=== PATIENT | female | born 2000 | race Caucasian/White ===

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

== ENCOUNTER 2019-01-17 22:00 | Outpatient (CLI) | payer OTHER ==
[2019-01-17 23:35] LABS: ADD MAN DIFF? NO
[2019-01-17 23:37] LABS: WHITE BLOOD COUNT 7.7 10^3/ul (4.8-10.8)
[2019-01-17 23:37] LABS: BASOPHILS % 0.4 % (0.0-2.0); EOSINOPHILS # 0.1 10^3/ul (0.0-0.5); HEMATOCRIT 28.3 % (37.0-47.0); HEMOGLOBIN 9.2 g/dl (12.0-16.0); LYMPHOCYTES # 1.6 10^3/ul (0.8-2.9); LYMPHOCYTES % 21.4 % (18.0-55.0); MEAN CORPUSCULAR HEMOGLOBIN 27.8 pg (29.0-33.0); MEAN CORPUSCULAR HGB CONC 32.5 g/dl (32.0-37.0); MEAN CORPUSCULAR VOLUME 85.5 fl (72.0-104.0); MEAN PLATELET VOLUME 9.5 fl (7.4-10.4); MONOCYTE # 0.6 10^3/ul (0.3-0.9); NEUTROPHIL # 5.3 10^3/ul (1.6-7.5); NEUTROPHILS % 68.8 % (30.0-74.0); PLATELET COUNT 204 10^3/UL (140-415); RED BLOOD COUNT 3.31 10^6/ul (4.20-5.40); RED CELL DISTRIBUTION WIDTH 13.8 % (11.5-14.5)
[2019-01-17 23:42] LABS: ADD UMIC YES; UR ASCORBIC ACID NEGATIVE (NEGATIVE); UR BILIRUBIN (Dip) NEGATIVE (NEGATIVE); UR BLOOD (Dip) 2+ mg/dL (NEGATIVE); UR CLARITY SLIGHTLY CLOUDY (CLEAR); UR COLOR YELLOW (YELLOW); UR GLUCOSE (Dip) NEGATIVE (NEGATIVE); UR KETONES (Dip) NEGATIVE (NEGATIVE); UR LEUKOCYTE ESTERASE (Dip) 1+ Leu/ul (NEGATIVE); UR NITRITE (Dip) NEGATIVE (NEGATIVE); UR RBC 0 /HPF (0-5); UR SPECIFIC GRAVITY (Dip) 1.013 (1.003-1.030); UR SQUAMOUS EPITHELIAL CELL FEW /HPF (FEW); UR TOTAL PROTEIN (Dip) NEGATIVE (NEGATIVE); UR UROBILINOGEN (Dip) NEGATIVE (NEGATIVE); UR WBC 6 /HPF (0-5)
[2019-01-17 23:56] LABS: AMPHETAMINE/METHAMPHETAMINE Negative (NEGATIVE); BARBITURATES Negative (NEGATIVE); BENZODIAZEPINES Negative (NEGATIVE); CANNABINOIDS Negative (NEGATIVE); COCAINE Negative (NEGATIVE); OPIATES Negative (NEGATIVE)
== END 2019-01-18 01:56 | disposition home or self-care (01) ==
LOC: OBT 22:00 → L-D 22:02
DX: O46.8X3 Other antepartum hemorrhage, third trimester (principal); Z3A.35 35 weeks gestation of pregnancy
CPT/HCPCS: 76815; 80307; 81001; 85025; 86850; 86900; 86901

== ENCOUNTER 2019-02-17 03:20 | Inpatient (IN) | payer OTHER ==
[2019-02-17] MEDS ORDERED: FENTAnyl 50 MCG/ML VIAL IV (04:00)
[2019-02-17] MEDS ORDERED: OXYTOCIN 30 UNITS/LR 500 ML IV ×2 (04:00→08:30)
[2019-02-17] MEDS ORDERED: CARBOPROST 250 MCG INJ IM ×2 (04:00→08:30)
[2019-02-17] MEDS ORDERED: OXYCODONE/ASPIRIN (4.88/325) TAB PO ×3 (04:00→08:30)
[2019-02-17] MEDS ORDERED: IBUPROFEN 600 MG TAB PO (04:00)
[2019-02-17] MEDS ORDERED: MISOPROSTOL 200 MCG TAB PR ×2 (04:00→08:30)
[2019-02-17] MEDS ORDERED: LIDOCAINE 1% (MPF) 30 ML INJ INJ (04:00)
[2019-02-17] MEDS: LACTATED RINGER'S 1,000 ML IV ×3 (04:10→17:38)
[2019-02-17] MEDS: AMPICILLIN 2 GM/NS (PMX) 100 ML IV (04:25)
[2019-02-17] MEDS ORDERED: FENTAnyl 2MCG/ML-ROPIV 0.2% 100 ML (04:46)
[2019-02-17 04:49] LABS: ADD MAN DIFF? NO
[2019-02-17] MEDS: BUTORPHANOL 2 MG INJ IV (04:51)
[2019-02-17 04:52] LABS: WHITE BLOOD COUNT 8.4 10^3/ul (4.8-10.8)
[2019-02-17 04:52] LABS: BASOPHILS % 0.1 % (0.0-2.0); EOSINOPHILS # 0.1 10^3/ul (0.0-0.5); EOSINOPHILS % 0.8 % (0.0-7.0); HEMATOCRIT 32.9 % (37.0-47.0); HEMOGLOBIN 10.6 g/dl (12.0-16.0); LYMPHOCYTES # 2.1 10^3/ul (0.8-2.9); LYMPHOCYTES % 25.2 % (18.0-55.0); MEAN CORPUSCULAR HEMOGLOBIN 27.6 pg (29.0-33.0); MEAN CORPUSCULAR HGB CONC 32.2 g/dl (32.0-37.0); MEAN CORPUSCULAR VOLUME 85.7 fl (72.0-104.0); MEAN PLATELET VOLUME 9.9 fl (7.4-10.4); MONOCYTE # 0.6 10^3/ul (0.3-0.9); MONOCYTES % 7.6 % (0.0-13.0); NEUTROPHIL # 5.5 10^3/ul (1.6-7.5); NEUTROPHILS % 65.9 % (30.0-74.0); PLATELET COUNT 220 10^3/UL (140-415); RED BLOOD COUNT 3.84 10^6/ul (4.20-5.40); RED CELL DISTRIBUTION WIDTH 15.1 % (11.5-14.5)
[2019-02-17] MEDS ORDERED: NALOXONE (0.4 MG/ML) INJ IV (05:00)
[2019-02-17] MEDS ORDERED: FENTAnyl 2MCG/ML-ROPIV 0.2% 100 ML BAG EPI (05:00)
[2019-02-17 05:11] LABS: INR 0.91; PROTIME 12.4 Sec (11.9-14.9)
[2019-02-17 05:12] LABS: PARTIAL THROMBOPLASTIN TIME 28.4 Sec (23.0-35.0)
[2019-02-17 05:49] LABS: HEPATITIS B SURFACE ANTIGEN NEGATIVE (NEGATIVE)
[2019-02-17] MEDS ORDERED: AMPICILLIN 1 GM/NS (PMX) 50 ML IV (08:00)
[2019-02-17] MEDS: METHYLERGONOVINE 0.2 MG INJ IM (08:25)
[2019-02-17] MEDS: OXYTOCIN 30 UNITS/LR 500 ML IV ×3 (08:26→11:00)
[2019-02-17] MEDS ORDERED: METHYLERGONOVINE 0.2 MG INJ IM (08:30)
[2019-02-17] MEDS ORDERED: ACETAMINOPHEN 325 MG TAB PO (08:30)
[2019-02-17] MEDS ORDERED: ONDANSETRON 4 MG INJ IV (08:30)
[2019-02-17] MEDS ORDERED: NACL 0.9% 3 ML SYG IV (08:30)
[2019-02-17] MEDS ORDERED: SENNA/DOCUSATE NA (8.6MG/50MG) TAB PO (08:30)
[2019-02-17] MEDS: SENNA/DOCUSATE NA (8.6MG/50MG) TAB PO ×2 (09:00→20:56)
[2019-02-17] MEDS: IBUPROFEN 800 MG TAB PO ×3 (11:40→23:52)
[2019-02-17] MEDS: WITCH HAZEL/GLYCERIN PAD PR (12:38)
[2019-02-17] MEDS: LANOLIN HPA 1 PKT TOP (12:38)
[2019-02-17] MEDS: BENZOCAINE 20% 56 ML SPRAY TOP (12:38)
[2019-02-17 16:09] LABS: RAPID PLASMA REAGIN NONREACTIVE (NR)
[2019-02-18] MEDS: LACTATED RINGER'S 1,000 ML IV (03:47)
[2019-02-18] MEDS: IBUPROFEN 800 MG TAB PO ×4 (05:47→23:37)
[2019-02-18] MEDS: SENNA/DOCUSATE NA (8.6MG/50MG) TAB PO ×2 (08:46→20:41)
[2019-02-18 09:15] LABS: ADD MAN DIFF? NO
[2019-02-18 09:17] LABS: BASOPHILS % 0.1 % (0.0-2.0); EOSINOPHILS # 0.1 10^3/ul (0.0-0.5); EOSINOPHILS % 1.2 % (0.0-7.0); HEMATOCRIT 26.9 % (37.0-47.0); HEMOGLOBIN 8.6 g/dl (12.0-16.0); LYMPHOCYTES # 2.1 10^3/ul (0.8-2.9); LYMPHOCYTES % 23.9 % (18.0-55.0); MEAN CORPUSCULAR HEMOGLOBIN 27.8 pg (29.0-33.0); MEAN CORPUSCULAR VOLUME 87.1 fl (72.0-104.0); MEAN PLATELET VOLUME 9.9 fl (7.4-10.4); MONOCYTE # 0.6 10^3/ul (0.3-0.9); NEUTROPHIL # 5.8 10^3/ul (1.6-7.5); NEUTROPHILS % 67.3 % (30.0-74.0); PLATELET COUNT 205 10^3/UL (140-415); RED BLOOD COUNT 3.09 10^6/ul (4.20-5.40); RED CELL DISTRIBUTION WIDTH 15.3 % (11.5-14.5)
[2019-02-18 09:17] LABS: WHITE BLOOD COUNT 8.6 10^3/ul (4.8-10.8)
[2019-02-19] MEDS: IBUPROFEN 800 MG TAB PO ×2 (05:26→12:28)
[2019-02-19] MEDS: SENNA/DOCUSATE NA (8.6MG/50MG) TAB PO (08:45)
[2019-02-19] MEDS: BENZOCAINE 20% 56 ML SPRAY TOP (10:43)
[2019-02-19] MEDS: WITCH HAZEL/GLYCERIN PAD PR (10:43)
== END 2019-02-19 13:45 | disposition home or self-care (01) | DRG 807 ==
LOC: OBT 03:20 → L-D 03:20 → OBT 03:47 → L-D 03:47 → PP1 09:50
PROVIDERS: Obstetrics & Gynecology
PROC: 10E0XZZ Delivery of Products of Conception, External Approach (ICD-10-PCS; principal; 2019-02-17)
PROC: 0HQ9XZZ Repair Perineum Skin, External Approach (ICD-10-PCS; 2019-02-17)
DX: O70.0 First degree perineal laceration during delivery (principal); Z37.0 Single live birth; Z3A.38 38 weeks gestation of pregnancy
CPT/HCPCS: 36415; 62322; 76815; 85025; 85610; 85730; 86592; 86850; 86900; 86901; 87340